=== PATIENT | male | born 1970 | race Two or more races ===

== ENCOUNTER 2023-09-15 21:58 | Emergency (ER) | payer SELFPAY ==
[~2023-09-15] VITALS: Ht 177.8 cm; Wt 113.6 kg
[2023-09-16 01:49] VITALS: BP 155/88; PULSE 103; RESP 14; TEMP 98; O2SAT 95
[2023-09-16] MEDS ORDERED: cefTRIAXone SOD 1,000 MG VL IM ONE (03:45)
[2023-09-16] MEDS ORDERED: NEOMYCIN-BACITRACIN-POLYM UNITDOSE PKG TOP OINT TOP ONE (03:45)
[2023-09-16] MEDS ORDERED: TETANUS-DIPTH-ACEL PERTUSSIS 0.5ML SYR Tdap IM ONE (03:45)
== END 2023-09-16 03:46 | disposition left against medical advice (07) ==
LOC: EDBD 21:58 → ER 21:58
DX: S02.2XXA Fracture of nasal bones, initial encounter for closed fracture (principal); S02.40DA Maxillary fracture, left side, initial encounter for closed fracture; S02.32XA Fracture of orbital floor, left side, initial encounter for closed fracture; S01.81XA Laceration without foreign body of other part of head, initial encounter; H57.89 Other specified disorders of eye and adnexa; Z53.29 Procedure and treatment not carried out because of patient's decision for other reasons; Y04.2XXA Assault by strike against or bumped into by another person, initial encounter; Y93.89 Activity, other specified; Y92.89 Other specified places as the place of occurrence of the external cause; Y99.8 Other external cause status
CPT/HCPCS: 12013; 70450; 70486